=== PATIENT | female | born 1990 | race Caucasian/White ===

== ENCOUNTER 2016-11-22 05:28 | Inpatient (IN) | payer BC ==
--- NOTE | 2016-11-21 17:17 | PCM.PREANE ---
Preanesthetic Assessment - PMH PMH: current- repeat section - ANESTHESIA/TRANSFUSION/FAMILY HX Anesthesia/Transfusion History: No Prior Transfusion(s), Prior Anesthesia Type of Anesthesia Reaction: Denies: Allergy, Anesthesia Awareness, Excessive Somnolence, Excessive Nausea/Vomiting, Excessive Itching, Excessive Shivering, Malignant Hyperthermia, Malignant Hyperthermia, Family History, Pseudocholinesterase Deficiency, Pseudocholinesterase Deficiency, Family History of, Urinary Retention, Unknown, Other (see below) Family History of Anesthesia Reaction: No - REVIEW OF SYSTEMS Constitutional: Reports: no symptoms 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 Respiratory: Reports: no symptoms Cardiovascular: Reports: no symptoms GI: Reports: no symptoms Other: Reports: none - PHYSICAL ASSESSMENT HR: 92 O2 Sat by Pulse Oximetry: 99 RR: 16 BP: 106/73 Temp: 36.2 C Height: 5 ft 7 in Weight: 90.718 kg NPO Status Date: 11/21/16 NPO Status Time: 23:00 ASA Class: 2 Mental Status: alert & oriented x3 Airway Class: Mallampati = 1 Dentition: Reports: normal dentition Thyro-Mental Finger Breadths: 3 Mouth Opening Finger Breadths: 3 ROM/Head Extension: full Respiratory Status: lungs clear to auscultation bilaterally Cardiovascular Status: regular rate & rhythm, normal S1, S2, no murmur, blood pressure WNL - LAB Values: Laboratory Last Values WBC 12.48 K/uL (4.0-11.0) H 11/21/16 13:36 RBC 4.12 M/uL (4.30-5.90) L 11/21/16 13:36 Hgb 12.2 g/dL (12.0-16.0) 11/21/16 13:36 Hct 35.4 % (36.0-46.0) L 11/21/16 13:36 MCV 85.9 fL (80.0-98.0) 11/21/16 13:36 MCH 29.6 pg (27.0-32.0) 11/21/16 13:36 MCHC 34.5 g/dL (31.0-37.0) 11/21/16 13:36 RDW Std Deviation 47.4 fl (28.0-62.0) 11/21/16 13:36 RDW Coeff of [place] 15 % (11.0-15.0) 11/21/16 13:36 Plt Count 151 K/uL (150-400) 11/21/16 13:36 MPV 9.90 fL (7.40-12.00) 11/21/16 13:36 Nucleated RBC % 0.0 /100WBC 11/21/16 13:36 Nucleated RBCs # 0 K/uL 11/21/16 13:36 Blood Type A NEGATIVE 11/21/16 13:36 Antibody Screen NEGATIVE 11/21/16 13:36 - ALLERGIES Allergies/Adverse Reactions: Allergies Allergy/AdvReac Type Severity Reaction Status Date / Time No Known Allergies Allergy Verified 03/09/14 14:16 - BLOOD Blood Available: Yes Product(s) Available: PRBC - ANESTHESIA PLAN Medication Ordered: Antacids Anesthesia Type Planned: spinal - ACKNOWLEDGEMENTS Pt an appropriate candidate for the planned anesthesia: Yes Alternatives and risks of anesthesia discussed w pt/guardian: Yes Pt/Guardian understands and agree with anesthesia plan: Yes PreAnesthesia Questionnaire HEENT History: Reports: Other (see below) Other HEENT History: wears glasses/contacts Cardiovascular History: Reports: None Respiratory History: Reports: Asthma Other Respiratory History: asthma in the past Gastrointestinal History: Reports: None Other Gastrointestinal History: occasional heartburn Genitourinary History: Reports: None 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 OB/BYN History: 18 weeks Musculoskeletal History: Reports: Arthritis Neurological History: Reports: None Psychiatric History: Reports: None Endocrine/Metabolic History: Reports: None Hematologic History: Reports: None Immunologic History: Reports: None Oncologic (Cancer) History: Reports: None Dermatologic History: Reports: None - Past Surgical History Head Surgeries/Procedures: Reports: None GI Surgical History: Reports: Cholecystectomy (06/08 was 18 wks ) Female Surgical History: Reports: section - SUBSTANCE USE Smoking Status *Q: Never Smoker Tobacco Use Within Last Twelve Months: No Second Hand Smoke Exposure: No Days Per Week of Alcohol Use: 0 Recreational Drug Use History: No - HOME MEDS Home Medications: Home Meds PNV95/Ferrous Fumarate/FA [ Multivitamins] 1 each PO DAILY 01/01/15 [ History] - CURRENT (IN HOUSE) MEDS Current Meds: Current Medications Citric Acid/Sodium Citrate (Bicitra Solution) 30 ml PO .ONCE [facility] Lactated Ringer's (Ringers, Lactated) 1,000 mls @ 500 mls/hr IV .BOLUS [facility] Sodium Chloride (Saline Flush) 10 ml FLUSH ASDIRECTED PRN PRN Reason: Keep Vein Open Sodium Chloride (Saline Flush) 2.5 ml FLUSH ASDIRECTED PRN PRN Reason: Keep Vein Open Discontinued Medications Cefazolin Sodium/Dextrose 2 gm (/ Premix) 50 mls @ 100 mls/hr IV ONETIME ONE Stop: 11/21/16 13:53
[~2016-11-22 05:28] MED LIST: Citric Acid/Sodium Citrate Solution 30 ML Cup PO SCH; Sodium Chloride 0.9% 10 ML Syringe FLUSH PRN; Sodium Chloride 0.9% 2.5 ML Syringe FLUSH PRN; ceFAZolin 2 GM in Premix Bag 1 BAG IV ONE
[2016-11-22] MEDS: Lactated Ringers 1,000 ML IV SCH ×2 (07:04→08:01)
[2016-11-22] MEDS ORDERED: Octyl 2-Cyanoacrylate 1 Tube ONE (07:28)
[2016-11-22] MEDS ORDERED: ceFAZolin 1 GM Vial ONE (07:32)
[2016-11-22] MEDS ORDERED: Sodium Chloride 0.9% 20 ML ONE (07:32)
[2016-11-22] MEDS ORDERED: Lidocaine 2% 5 ML SDV ONE (07:33)
[2016-11-22] MEDS ORDERED: Ondansetron 4 MG/2 ML SDV ONE (07:33)
[2016-11-22] MEDS ORDERED: Oxytocin 10 Units/1 ML SDV ONE (07:33)
[2016-11-22] MEDS ORDERED: Water For Injection, Sterile 20 ML ONE (07:33)
[2016-11-22] MEDS ORDERED: ePHEDrine 50 MG/ML SDV ONE (07:33)
[2016-11-22] MEDS ORDERED: Morphine PF 10 MG/10 ML SDV ONE (07:38)
--- NOTE | 2016-11-22 08:02 | PCM.LDHP ---
L&D History of Present Illness - General Date of Service: 11/22/16 Admit Problem/Dx: Patient Status Order with Admit Dx/Problem 11/21/16 13:24 Patient Status [ADT] Routine Patient Status: Admit to Inpatient Admission Diagnosis/Problem: - planned Reason for Admit: Surgery Nurse Unit Type: Medical-Surgical Admitting Physician: Fabiano Vee Attending Physician: Fabiano Vee Admission Diagnosis/Problem Admission Diagnosis/Problem - planned Source of Information: Patient History Limitations: Reports: No limitations - History of Present Illness Improves with: Reports: None Worsens with: Reports: None Associated Symptoms: Reports: N - Related Data Allergies/Adverse Reactions: Allergies Allergy/AdvReac Type Severity Reaction Status Date / Time No Known Allergies Allergy Verified 03/09/14 14:16 Home Medications: Home Meds PNV95/Ferrous Fumarate/FA [ Multivitamins] 1 each PO DAILY 01/01/15 [ History] Past Medical History HEENT History: Reports: Other (see below) Other HEENT History: wears glasses/contacts Cardiovascular History: Reports: None Respiratory History: Reports: Asthma Other Respiratory History: asthma in the past Gastrointestinal History: Reports: None Other Gastrointestinal History: occasional heartburn Genitourinary History: Reports: None 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 OB/BYN History: 18 weeks Musculoskeletal History: Reports: Arthritis Neurological History: Reports: None Psychiatric History: Reports: None Endocrine/Metabolic History: Reports: None Hematologic History: Reports: None Immunologic History: Reports: None Oncologic (Cancer) History: Reports: None Dermatologic History: Reports: None - Past Surgical History Head Surgeries/Procedures: Reports: None GI Surgical History: Reports: Cholecystectomy (06/08 was 18 wks ) Female Surgical History: Reports: section Social & Family History - Tobacco Use Smoking Status *Q: Never Smoker Second Hand Smoke Exposure: No - Alcohol Use Days Per Week of Alcohol Use: 0 - Recreational Drug Use Recreational Drug Use: No H&P Review of Systems - Review of Systems: Review Of Systems: See Below General: Reports: no symptoms HEENT: Reports: no symptoms Pulmonary: Reports: no symptoms Cardiovascular: Reports: no symptoms Gastrointestinal: Reports: No symptoms Genitourinary: Reports: no symptoms Musculoskeletal: Reports: no symptoms Skin: Reports: no symptoms Psychiatric: Reports: no symptoms Neurological: Reports: no symptoms Hematologic/Lymphatic: Reports: no symptoms Immunologic: Reports: no symptoms L&D Exam - Exam Exam: See Below - Vital Signs Vital Signs: Last Vital Signs Temp 36.2 C 11/22/16 07:25 Pulse 92 11/22/16 07:25 Resp 16 11/22/16 07:25 BP 106/73 11/22/16 07:25 Pulse Ox 99 11/22/16 07:25 Weight: 90.718 kg - OB Specific Fundal Height in cm: 39 Contraction Intensity: Mild movement: active heart tones: present - Patient Data Lab Results last 24 hrs: Laboratory Results - last 24 hr 11/21/16 11/21/16 Range/Units 13:36 13:36 WBC 12.48 H (4.0-11.0) K/uL RBC 4.12 L (4.30-5.90) M/uL Hgb 12.2 (12.0-16.0) g/dL Hct 35.4 L (36.0-46.0) % MCV 85.9 (80.0-98.0) fL MCH 29.6 (27.0-32.0) pg MCHC 34.5 (31.0-37.0) g/dL RDW Std Deviation 47.4 (28.0-62.0) fl RDW Coeff of [place] 15 (11.0-15.0) % Plt Count 151 (150-400) K/uL MPV 9.90 (7.40-12.00) fL Nucleated RBC % 0.0 /100WBC Nucleated RBCs # 0 K/uL Blood Type A NEGATIVE Antibody Screen NEGATIVE Result Diagrams: 11/21/16 13:36 Problem List Initiated/Reviewed/Updated: Yes Orders Last 24hrs: Active Orders 24 hr Category Date Time Status Patient Status [ADT] Routine ADT 11/21/16 13:24 Active Non Stress Test [RC] PER UNIT ROUTINE Care 11/21/16 13:24 Active Procedure Site Prep Instruct [RC] ASDIRECTED Care 11/21/16 13:24 Active Up ad Malini [RC] ASDIRECTED Care 11/21/16 13:24 Active Vital Signs [RC] PER UNIT ROUTINE Care 11/21/16 13:24 Active Citric Acid/Sodium Citrate [Bicitra Solution] Med 11/21/16 13:30 Active 30 ml PO .ONCE Lactated Ringers [Ringers, Lactated] 1,000 ml Med 11/21/16 13:30 Active IV .BOLUS Sodium Chloride 0.9% [Saline Flush] Med 11/21/16 13:24 Active 10 ml FLUSH ASDIRECTED PRN Sodium Chloride 0.9% [Saline Flush] Med 11/21/16 13:24 Active 2.5 ml FLUSH ASDIRECTED PRN Peripheral IV Insertion Adult [OM.PC] Routine Oth 11/21/16 13:24 Ordered Resuscitation Status Routine Resus Stat 11/21/16 13:24 Ordered Medication Orders Citric Acid/Sodium Citrate (Bicitra Solution) 30 ml PO .ONCE [facility] Last Admin: 11/22/16 07:41 Dose: 30 ml Lactated Ringer's (Ringers, Lactated) 1,000 mls @ 500 mls/hr IV .BOLUS [facility] Last Admin: 11/22/16 07:04 Dose: 500 mls/hr Sodium Chloride (Saline Flush) 10 ml FLUSH ASDIRECTED PRN PRN Reason: Keep Vein Open Sodium Chloride (Saline Flush) 2.5 ml FLUSH ASDIRECTED PRN PRN Reason: Keep Vein Open
[2016-11-22] MEDS ORDERED: Phenylephrine/Normal Saline 100 MCG/ML 10 ML Syringe ONE (08:21)
[2016-11-22] MEDS ORDERED: Bisacodyl 10 MG Supp RECTAL PRN (08:52)
[2016-11-22] MEDS ORDERED: diphenhydrAMINE 50 MG/ML SDV IVPUSH PRN ×2 (08:52→09:12)
[2016-11-22] MEDS ORDERED: Ondansetron 4 MG/2 ML SDV IV PRN (08:52)
[2016-11-22] MEDS ORDERED: Lanolin 100% Cream 7 GM Tube TOP PRN (08:52)
[2016-11-22] MEDS ORDERED: Acetaminophen/oxyCODONE 325-5 MG Tab PO PRN (08:52)
--- NOTE | 2016-11-22 08:56 | PCM.OPNOTE ---
- General Post-Op/Procedure Note Date of Surgery/Procedure: 11/22/16 Pre Op Diagnosis: Term / Elective repeat c/ Section Post-Op Diagnosis: Same Secondary Surgeon: Fabiano Vee EBL in mLs: 800 Complications: None Condition: Good
[2016-11-22] MEDS ORDERED: Lactated Ringers 1,000 ML IV SCH ×3 (09:00→16:00)
[2016-11-22] MEDS ORDERED: Nalbuphine 10 MG/1 ML Vial IVPUSH PRN (09:12)
[2016-11-22] MEDS ORDERED: Naloxone 0.4 MG/ML Syringe IVPUSH PRN (09:12)
[2016-11-22] MEDS: Ketorolac 30 MG/ML SDV IVPUSH SCH ×3 (09:32→20:41)
--- NOTE | 2016-11-22 09:35 | PCM.POSTAN ---
POST ANESTHESIA ASSESSMENT - MENTAL STATUS Mental Status: alert - RESPIRATORY Respiratory Status: respiratory rate WNL, airway patent, O2 saturation stable - CARDIOVASCULAR CV Status: pulse rate WNL, blood pressure stable - GASTROINTESTINAL GI Status: no symptoms - PAIN Pain Score: 0 - POST OP HYDRATION Hydration Status: adequate & stable
[2016-11-22] MEDS: Docusate Sodium 100 MG Cap PO SCH ×2 (13:18→20:41)
--- NOTE | 2016-11-22 13:30 | OR ---
SURGEON: Fabiano Vee MD DATE OF PROCEDURE: PREOPERATIVE DIAGNOSIS: Term , previous section admitted for elective repeat section. POSTOPERATIVE DIAGNOSIS: Term , previous section admitted for elective repeat section. OPERATION PERFORMED: Low transverse section through Pfannenstiel skin incision. CASHIER SELF SERVICE GASOLINE: STEPHANIE Osorio. ANESTHESIA: Spinal by Danny Jeffery and Dr. Sharif. ESTIMATED BLOOD LOSS: 800 mL. COMPLICATIONS: None. FINDINGS: Male fetus. scores were reported to be 8 and 9. The weight is not available at this time. Normal uterus, tubes, and ovaries. INDICATION FOR SURGERY: This patient is and term and she is followed in our clinic primarily by me. She is admitted for elective repeat section. PROCEDURE IN DETAIL: The patient was brought to the OR, properly identified. After adequate level of spinal anesthesia, the patient was prepped and draped in sterile fashion as usual. Low transverse Pfannenstiel skin incision was done. Jose fascia and rectus fascia were opened in direction of the incision. The 2 recti muscles and peritoneal cavity was entered. Low transverse uterine incision was done, extended manually with the hand. Fetus was in a vertex position and delivered without any problem. Handed to the resuscitating team. Fetus cried immediately and later on the score reported 8 and 9. The weight is not available. The placenta delivered spontaneous, complete, and intact and repair of the lower uterine segment was done with 2-0 Vicryl continuous interlocking for 2 layers. The peritoneal cavity was evacuated completely from all blood and blood clot and closed with 3-0 Vicryl continuous. Then, the rectus fascia was closed with #1 PDS double strand continuous. The Jose's fascia was closed with 3-0 Vicryl continuous and the skin closed with skin clips and Insorb. Instrument and sponge count were correct. The patient tolerated the procedure well. Went to recovery room in stable general condition. CHRISTOPHER / ROBERTA /[id number]
[2016-11-22] MEDS ORDERED: fentaNYL 100 MCG/2 ML SDV IVPUSH PRN (20:03)
[2016-11-23] MEDS: Ketorolac 30 MG/ML SDV IVPUSH SCH ×2 (03:09→08:56)
--- NOTE | 2016-11-23 08:56 | PCM.PNPP ---
- General Info Date of Service: 11/23/16 Functional Status: Reports: pain controlled - Review of Systems General: Reports: no symptoms HEENT: Reports: no symptoms Pulmonary: Reports: no symptoms Cardiovascular: Reports: no symptoms Gastrointestinal: Reports: No symptoms Genitourinary: Reports: no symptoms Musculoskeletal: Reports: no symptoms Skin: Reports: no symptoms Neurological: Reports: no symptoms Psychiatric: Reports: no symptoms - General Info Date of Service: 11/23/16 - Patient Data Vital Signs - most recent: Last Vital Signs Temp 36.8 C 11/23/16 08:00 Pulse 107 H 11/23/16 08:00 Resp 20 11/23/16 08:00 BP 107/56 L 11/23/16 08:00 Pulse Ox 95 11/23/16 08:00 Weight - most recent: 90.718 kg I&O - last 24 hours: Intake & Output 11/22/16 11/23/16 11/23/16 22:59 06:59 14:59 Intake Total 2 900 Output Total 400 650 Balance -398 250 Lab Results - last 24 hrs: Laboratory Results - last 24 hr 11/22/16 11/23/16 Range/Units 09:56 04:33 Hgb 9.8 L (12.0-16.0) g/dL Hct 29.5 L (36.0-46.0) % Screen NEGATIVE RhIG Candidate? YES Rhogam Indicated YES, BABY RH POS H Med Orders - Current: Current Medications Bisacodyl (Dulcolax) 10 mg RECTAL .ONCE PRN PRN Reason: Constipation Citric Acid/Sodium Citrate (Bicitra Solution) 30 ml PO .ONCE [facility] Last Admin: 11/22/16 07:41 Dose: 30 ml Diphenhydramine HCl (Benadryl) 25 mg IVPUSH Q6H PRN PRN Reason: Itching or Nausea Diphenhydramine HCl (Benadryl) 25 mg IVPUSH Q4H PRN PRN Reason: Itching Stop: 11/23/16 09:12 Docusate Sodium (Colace) 100 mg PO BID [facility] Last Admin: 11/22/16 20:41 Dose: 100 mg Emollient Ointment (Lansinoh Hpa) 0 gm TOP ASDIRECTED PRN PRN Reason: Sore Nipples Lactated Ringer's (Ringers, Lactated) 1,000 mls @ 500 mls/hr IV .BOLUS [facility] Last Admin: 11/22/16 08:01 Dose: 500 mls/hr Lactated Ringer's (Ringers, Lactated) 1,000 mls @ 125 mls/hr IV ASDIRECTED [facility] Ibuprofen (Motrin) 800 mg PO Q8H PRN PRN Reason: mild pain or fever Ketorolac Tromethamine (Toradol) 30 mg IVPUSH Q6H [facility] Stop: 11/23/16 09:01 Last Admin: 11/23/16 03:09 Dose: 30 mg Nalbuphine HCl (Nubain) 5 mg IVPUSH Q3H PRN PRN Reason: Pruritis Stop: 11/23/16 09:12 Naloxone HCl (Narcan) 0.1 mg IVPUSH ONETIME PRN PRN Reason: Respiratory Depression Stop: 11/23/16 09:12 Ondansetron HCl (Zofran) 4 mg IV Q4H PRN PRN Reason: Nausea/Vomiting Oxycodone/Acetaminophen (Percocet 325-5 Mg) 1 tab PO Q4H PRN PRN Reason: Pain (moderate 4-6) Oxycodone/Acetaminophen (Percocet 325-5 Mg) 2 tab PO Q4H PRN PRN Reason: Pain (moderate 4-6) Sodium Chloride (Saline Flush) 10 ml FLUSH ASDIRECTED PRN PRN Reason: Keep Vein Open Sodium Chloride (Saline Flush) 2.5 ml FLUSH ASDIRECTED PRN PRN Reason: Keep Vein Open Discontinued Medications Cefazolin Sodium (Ancef) Confirm Administered Dose 2 gm .ROUTE .STK-MED ONE Stop: 11/22/16 07:33 Ephedrine Sulfate (Ephedrine Sulfate) Confirm Administered Dose 50 mg .ROUTE .STK-MED ONE Stop: 11/22/16 07:34 Fentanyl (Sublimaze) 50 mcg IVPUSH Q45M PRN PRN Reason: Pain (severe 7-10) Stop: 11/23/16 08:00 Glycopyrrolate (Robinul) Confirm Administered Dose 1 mg .ROUTE .STK-MED ONE Stop: 11/22/16 08:21 Cefazolin Sodium/Dextrose 2 gm (/ Premix) 50 mls @ 100 mls/hr IV ONETIME ONE Stop: 11/21/16 13:53 Sodium Chloride (Normal Saline) Confirm Administered Dose 20 mls @ as directed .ROUTE .STK-MED ONE Stop: 11/22/16 07:33 Sterile Water (Sterile Water For Injection) Confirm Administered Dose 20 mls @ as directed .ROUTE .STK-MED ONE Stop: 11/22/16 07:34 Lactated Ringer's (Ringers, Lactated) 1,000 mls @ 125 mls/hr IV ASDIRECTED [facility] Last Admin: 11/22/16 11:01 Dose: 125 mls/hr Lidocaine (Xylocaine-Mpf 2%) Confirm Administered Dose 5 ml .ROUTE .STK-MED ONE Stop: 11/22/16 07:34 Morphine Sulfate (Duramorph Pf) Confirm Administered Dose 10 mg .ROUTE .STK-MED ONE Stop: 11/22/16 07:39 Octyl Cyanoacrylate (Dermabond Advance) Confirm Administered Dose 1 applic .ROUTE .STK-MED ONE Stop: 11/22/16 07:29 Ondansetron HCl (Zofran) Confirm Administered Dose 4 mg .ROUTE .STK-MED ONE Stop: 11/22/16 07:34 Oxytocin (Pitocin) Confirm Administered Dose 20 unit .ROUTE .STK-MED ONE Stop: 11/22/16 07:34 Phenylephrine HCl (Phenylephrine In Ns 100 Mcg/Ml) Confirm Administered Dose 1 mg .ROUTE .STK-MED ONE Stop: 11/22/16 08:22 - Interaction Disposition, : [place] in Room with Family Infant Interaction: Holding Infant Infant Feeding: Attempted ; Nursed Fair/Poor Support Person: - Recovery Exam Fundal Tone: Firm Fundal Level: 1 Fingerbreadths Below Umbilicus Fundal Placement: Midline Lochia Amount: Scant Lochia Color: Rubra/Red Perineum Description: Intact, Minimal Bruising/Swelling Episiotomy/Laceration: None Bladder Status: Indwelling Catheter in Place Urinary Elimination: Indwelling Catheter - Exam General: alert, oriented HEENT: Pupils equal Neck: supple Lungs: Clear to auscultation, Normal respiratory effort Cardiovascular: regular rate, regular rhythm Abdomen: bowel sounds present, soft, no tenderness, no distension Extremities: no edema Skin: warm, dry, intact Wound/Incisions: healing well Neurological: no new focal deficit Psy/Mental Status: alert, normal affect, normal mood - Problem List Review Problem List Initiated/Reviewed/Updated: Yes - My Orders Last 24 Hours: My Active Orders 11/22/16 08:52 Patient Status [ADT] Routine Ambulate [RC] PER UNIT ROUTINE Communication Order [RC] PER UNIT ROUTINE Communication Order [RC] PER UNIT ROUTINE Communication Order [RC] Per Unit Routine May Shower [RC] ASDIRECTED RT Incentive Spirometry [RC] Q2HWA Vital Signs [RC] PER UNIT ROUTINE Acetaminophen/oxyCODONE [Percocet 325-5 MG] 1 tab PO Q4H PRN Acetaminophen/oxyCODONE [Percocet 325-5 MG] 2 tab PO Q4H PRN Bisacodyl [Dulcolax] 10 mg RECTAL .ONCE PRN Lanolin [Lansinoh HPA] See Dose Instructions TOP ASDIRECTED PRN Ondansetron [Zofran] 4 mg IV Q4H PRN diphenhydrAMINE [Benadryl] 25 mg IVPUSH Q6H PRN Assess Lochia [WOMSER] Per Unit Routine Assess Uterine Involution [WOMSER] Per Unit Routine Breast Pump [WOMSER] Per Unit Routine Peripheral IV Discontinue [OM.PC] Routine Sequential Compression Device [OM.PC] Per Unit Routine 11/22/16 08:53 Antiembolic Devices [RC] PER UNIT ROUTINE 11/22/16 09:00 Docusate Sodium [Colace] 100 mg PO BID Ketorolac [Toradol] 30 mg IVPUSH Q6H 11/22/16 16:00 Lactated Ringers [Ringers, Lactated] 1,000 ml IV ASDIRECTED 11/22/16 Dinner Regular Diet [DIET] 11/23/16 15:00 Ibuprofen [Motrin] 800 mg PO Q8H PRN - Assessment Assessment:: Status post section postoperative day #1 the patient is doing well on regular diet voiding incision is clean and dry minimum vaginal bleeding - Plan Plan:: For care we will send the patient home in a.m.
[2016-11-23] MEDS: Docusate Sodium 100 MG Cap PO SCH ×2 (08:57→21:29)
[2016-11-23] MEDS: Ibuprofen 800 MG Tab PO PRN (15:54)
[2016-11-23] MEDS: Acetaminophen/oxyCODONE 325-5 MG Tab PO PRN (18:43)
--- NOTE | 2016-11-23 22:31 | PCM48HPAN ---
Post Anesthesia Note - EVALUATION WITHIN 48HRS OF ANESTHETIC Vital Signs in Normal Range: Yes Patient Participated in Evaluation: Yes Respiratory Function Stable: Yes Airway Patent: Yes Cardiovascular Function Stable: Yes Hydration Status Stable: Yes Pain Control Satisfactory: Yes Nausea and Vomiting Control Satisfactory: Yes Mental Status Recovered: Yes - COMMENTS/OBSERVATIONS Free Text/Narrative:: Full return of sensation and motor movement to lower extremities. Denies problems with anesthetic.
[2016-11-24] MEDS: Acetaminophen/oxyCODONE 325-5 MG Tab PO PRN (04:18)
[2016-11-24 08:20] VITALS: BP 113/67
[2016-11-24] MEDS: Docusate Sodium 100 MG Cap PO SCH (09:26)
[2016-11-24] MEDS: Ibuprofen 800 MG Tab PO PRN (09:26)
--- NOTE | 2016-11-24 10:25 | PCM.PNPP ---
- General Info Date of Service: 11/24/16 Functional Status: Reports: pain controlled - Review of Systems General: Reports: no symptoms HEENT: Reports: no symptoms Pulmonary: Reports: no symptoms Cardiovascular: Reports: no symptoms Gastrointestinal: Reports: No symptoms Genitourinary: Reports: no symptoms Musculoskeletal: Reports: no symptoms Skin: Reports: no symptoms Neurological: Reports: no symptoms Psychiatric: Reports: no symptoms - General Info Date of Service: 11/24/16 - Patient Data Vital Signs - most recent: Last Vital Signs Temp 36.7 C 11/24/16 08:19 Pulse 100 11/24/16 08:19 Resp 17 11/24/16 08:19 BP 113/67 11/24/16 08:19 Pulse Ox 97 11/24/16 08:19 Weight - most recent: 90.718 kg Med Orders - Current: Current Medications Bisacodyl (Dulcolax) 10 mg RECTAL .ONCE PRN PRN Reason: Constipation Citric Acid/Sodium Citrate (Bicitra Solution) 30 ml PO .ONCE PARVEZ Last Admin: 11/22/16 07:41 Dose: 30 ml Diphenhydramine HCl (Benadryl) 25 mg IVPUSH Q6H PRN PRN Reason: Itching or Nausea Docusate Sodium (Colace) 100 mg PO BID PARVEZ Last Admin: 11/24/16 09:26 Dose: 100 mg Emollient Ointment (Lansinoh Hpa) 0 gm TOP ASDIRECTED PRN PRN Reason: Sore Nipples Last Admin: 11/23/16 15:53 Dose: 1 tube Lactated Ringer's (Ringers, Lactated) 1,000 mls @ 500 mls/hr IV .BOLUS PARVEZ Last Admin: 11/22/16 08:01 Dose: 500 mls/hr Lactated Ringer's (Ringers, Lactated) 1,000 mls @ 125 mls/hr IV ASDIRECTED PARVEZ Ibuprofen (Motrin) 800 mg PO Q8H PRN PRN Reason: mild pain or fever Last Admin: 11/24/16 09:26 Dose: 800 mg Ondansetron HCl (Zofran) 4 mg IV Q4H PRN PRN Reason: Nausea/Vomiting Oxycodone/Acetaminophen (Percocet 325-5 Mg) 1 tab PO Q4H PRN PRN Reason: Pain (moderate 4-6) Last Admin: 11/24/16 04:18 Dose: 1 tab Oxycodone/Acetaminophen (Percocet 325-5 Mg) 2 tab PO Q4H PRN PRN Reason: Pain (moderate 4-6) Sodium Chloride (Saline Flush) 10 ml FLUSH ASDIRECTED PRN PRN Reason: Keep Vein Open Sodium Chloride (Saline Flush) 2.5 ml FLUSH ASDIRECTED PRN PRN Reason: Keep Vein Open Discontinued Medications Cefazolin Sodium (Ancef) Confirm Administered Dose 2 gm .ROUTE .STK-MED ONE Stop: 11/22/16 07:33 Diphenhydramine HCl (Benadryl) 25 mg IVPUSH Q4H PRN PRN Reason: Itching Stop: 11/23/16 09:12 Ephedrine Sulfate (Ephedrine Sulfate) Confirm Administered Dose 50 mg .ROUTE .STK-MED ONE Stop: 11/22/16 07:34 Fentanyl (Sublimaze) 50 mcg IVPUSH Q45M PRN PRN Reason: Pain (severe 7-10) Stop: 11/23/16 08:00 Glycopyrrolate (Robinul) Confirm Administered Dose 1 mg .ROUTE .STK-MED ONE Stop: 11/22/16 08:21 Cefazolin Sodium/Dextrose 2 gm (/ Premix) 50 mls @ 100 mls/hr IV ONETIME ONE Stop: 11/21/16 13:53 Sodium Chloride (Normal Saline) Confirm Administered Dose 20 mls @ as directed .ROUTE .STK-MED ONE Stop: 11/22/16 07:33 Sterile Water (Sterile Water For Injection) Confirm Administered Dose 20 mls @ as directed .ROUTE .STK-MED ONE Stop: 11/22/16 07:34 Lactated Ringer's (Ringers, Lactated) 1,000 mls @ 125 mls/hr IV ASDIRECTED [facility] Last Admin: 11/22/16 11:01 Dose: 125 mls/hr Ketorolac Tromethamine (Toradol) 30 mg IVPUSH Q6H [facility] Stop: 11/23/16 09:01 Last Admin: 11/23/16 08:56 Dose: 30 mg Lidocaine (Xylocaine-Mpf 2%) Confirm Administered Dose 5 ml .ROUTE .STK-MED ONE Stop: 11/22/16 07:34 Morphine Sulfate (Duramorph Pf) Confirm Administered Dose 10 mg .ROUTE .STK-MED ONE Stop: 11/22/16 07:39 Nalbuphine HCl (Nubain) 5 mg IVPUSH Q3H PRN PRN Reason: Pruritis Stop: 11/23/16 09:12 Naloxone HCl (Narcan) 0.1 mg IVPUSH ONETIME PRN PRN Reason: Respiratory Depression Stop: 11/23/16 09:12 Octyl Cyanoacrylate (Dermabond Advance) Confirm Administered Dose 1 applic .ROUTE .STK-MED ONE Stop: 11/22/16 07:29 Ondansetron HCl (Zofran) Confirm Administered Dose 4 mg .ROUTE .STK-MED ONE Stop: 11/22/16 07:34 Oxytocin (Pitocin) Confirm Administered Dose 20 unit .ROUTE .STK-MED ONE Stop: 11/22/16 07:34 Phenylephrine HCl (Phenylephrine In Ns 100 Mcg/Ml) Confirm Administered Dose 1 mg .ROUTE .STK-MED ONE Stop: 11/22/16 08:22 - Interaction Infant Disposition, : [place] in Room with Family Interaction: Holding Feeding: Attempted ; Nursed Fair/Poor Support Person: - Recovery Exam Fundal Tone: Firm Fundal Level: 1 Fingerbreadths Below Umbilicus Fundal Placement: Midline Lochia Amount: Scant Lochia Color: Rubra/Red Perineum Description: Intact, Minimal Bruising/Swelling Episiotomy/Laceration: None Bladder Status: Voiding Urinary Elimination: Voided - Exam General: alert, oriented HEENT: Pupils equal Neck: supple Lungs: Clear to auscultation, Normal respiratory effort Cardiovascular: regular rate, regular rhythm Abdomen: bowel sounds present, soft, no tenderness, no distension Extremities: no edema Skin: warm, dry, intact Wound/Incisions: healing well Neurological: no new focal deficit Psy/Mental Status: alert, normal affect, normal mood - Problem List Review Problem List Initiated/Reviewed/Updated: Yes - My Orders Last 24 Hours: My Active Orders 11/23/16 15:00 Ibuprofen [Motrin] 800 mg PO Q8H PRN - Assessment Assessment:: Status post section postoperative day #1 the patient is doing well on regular diet voiding incision is clean and dry minimum vaginal bleeding - Plan Plan:: For care we will send the patient home in a.m.
== END 2016-11-24 12:30 | disposition home or self-care (01) | DRG 540 ==
LOC: MW.OB 05:28
PROVIDERS: ADMIT Obstetrics & Gynecology; ATTEND Obstetrics & Gynecology
PROC: 10D00Z1 Extraction of Products of Conception, Low, Open Approach (ICD-10-PCS; principal; 2016-11-22)
DX: O34.211 Maternal care for low transverse scar from previous cesarean delivery (principal); N85.8 Other specified noninflammatory disorders of uterus; Z3A.40 40 weeks gestation of pregnancy; Z37.0 Single live birth
CPT/HCPCS: 01961; 36415; 85014; 85018; 85027; 85460; 86850; 86900; 86901; A9270-GY; J0690; J1885; J2270; J2405; J2590; J2790; J7120

== ENCOUNTER 2017-07-20 09:57 | Emergency (ER) | payer BC, OTHER ==
[2017-07-20 10:13] VITALS: BP 120/68
[2017-07-20] MEDS ORDERED: Benzocaine 20% Topical Spray UD MUCMEM ONE (10:18)
[2017-07-20] MEDS ORDERED: Lidocaine 2% Viscous Solution 15 ML Cup PO ONE (10:18)
--- NOTE | 2017-07-20 10:36 | EDM.PDOC ---
ED HPI GENERAL MEDICAL PROBLEM - General Chief Complaint: ENT Problem Stated Complaint: ORAL PAIN Time Seen by Provider: 07/20/17 10:10 Source of Information: Reports: Patient History Limitations: Reports: No Limitations - History of Present Illness INITIAL COMMENTS - FREE TEXT/NARRATIVE: History of present illness: [27-year-old female comes in complaining of dental pain on the right upper back wisdom tooth.] Review of systems: As per history of present illness and below otherwise all systems reviewed and negative. Past medical history: As per history of present illness and as reviewed below otherwise noncontributory. Surgical history: As per history of present illness and as reviewed below otherwise noncontributory. Social history: No reported history of drug or alcohol abuse. Family history: As per history of present illness and as reviewed below otherwise noncontributory. Physical exam: HEENT: Atraumatic, normocephalic, pupils reactive, negative for conjunctival pallor or scleral icterus, mucous membranes moist, throat clear, neck supple, nontender, trachea midline. Lungs: Clear to auscultation, breath sounds equal bilaterally, chest nontender. Heart: S1S2, regular, negative for clicks, rubs, or JVD. Abdomen: Soft, nondistended, nontender. Negative for masses or hepatosplenomegaly. Negative for costovertebral tenderness. Pelvis: Stable nontender. Genitourinary: Deferred. Rectal: Deferred. Extremities: Atraumatic, negative for cords or calf pain. Neurovascular unremarkable. Neuro: Awake, alert, oriented. Cranial nerves II through XII unremarkable. Cerebellum unremarkable. Motor and sensory unremarkable throughout. Exam nonfocal. Dental: Right upper back wisdom tooth with some amount of impaction as well as secondary infection Diagnostics: [] Therapeutics: [] Impression: [#1 dental pain #2 dental abscess] Plan: [Dental balls, antibiotics, small brief run of pain medicine dental] Definitive disposition and diagnosis as appropriate pending reevaluation and review of above. Right Upper Tooth/Teeth Pain Score (Numeric/FACES): 4 - Related Data Allergies Allergy/AdvReac Type Severity Reaction Status Date / Time No Known Allergies Allergy Verified 07/20/17 10:05 Home Meds: Home Meds PNV95/Ferrous Fumarate/FA [ Multivitamins] 1 each PO DAILY 01/01/15 [ History] Amoxicillin/Potassium Clav [Augmentin 875-125 Tablet] 1 each PO BID #20 tablet 07/20/17 [Rx] Past Medical History HEENT History: Reports: Impaired Vision Other HEENT History: wears glasses/contacts Cardiovascular History: Reports: None Respiratory History: Reports: Asthma Other Respiratory History: asthma in the past Gastrointestinal History: Reports: Other (See Below) Other Gastrointestinal History: occasional heartburn Genitourinary History: Reports: None CARDIOGRAPHER History: Reports: Other OB/BYN History: 18 weeks Musculoskeletal History: Reports: Arthritis Neurological History: Reports: None Psychiatric History: Reports: None Endocrine/Metabolic History: Reports: None Hematologic History: Reports: None Immunologic History: Reports: None Oncologic (Cancer) History: Reports: None Dermatologic History: Reports: None - Past Surgical History Head Surgeries/Procedures: Reports: None GI Surgical History: Reports: Cholecystectomy Female Surgical History: Reports: Section Social & Family History - Family History Family Medical History: Noncontributory - Tobacco Use Smoking Status *Q: Never Smoker Second Hand Smoke Exposure: No - Caffeine Use Caffeine Use: Reports: Coffee, Soda Caffeine Use Comment: 2 cups per day - Alcohol Use Days Per Week of Alcohol Use: 0 - Recreational Drug Use Recreational Drug Use: No ED ROS GENERAL - Review of Systems Review Of Systems: See Below (See history of present illness) ED EXAM, GENERAL - Physical Exam Exam: See Below (See history of present illness) Course - Vital Signs Last Recorded V/S: Last Vital Signs Temp 36.0 C 07/20/17 10:06 Pulse 76 07/20/17 10:06 Resp 16 07/20/17 10:06 BP 120/68 07/20/17 10:06 Pulse Ox 98 07/20/17 10:06 - Orders/Labs/Meds Meds: Medications Discontinued Medications Generic Name Dose Route Start Last Admin Trade Name Freq PRN Reason Stop Dose Admin Benzocaine 2 each 07/20/17 10:18 Hurricaine One 20% MUCMEM 07/20/17 10:19 ONETIME ONE Lidocaine HCl 15 ml 07/20/17 10:18 Xylocaine 2% Viscous PO 07/20/17 10:19 ONETIME ONE Departure - Departure Time of Disposition: 10:37 Disposition: Home, Self-Care 01 Condition: Good Clinical Impression: Dental abscess - Discharge Information Prescriptions: Amoxicillin/Potassium Clav [Augmentin 875-125 Tablet] 1 each PO BID #20 tablet Instructions: Dental Abscess, [id number] Referrals: PCP,Unknown [Primary Care Provider] - Forms: ED Department Discharge Additional Instructions: The following information is given to patients seen in the emergency department who are being discharged to home. This information is to outline your options for follow-up care. We provide all patients seen in our emergency department with a follow-up referral. The need for follow-up, as well as the timing and circumstances, are variable depending upon the specifics of your emergency department visit. If you don't have a primary care physician on staff, we will provide you with a referral. We always advise you to contact your personal physician following an emergency department visit to inform them of the circumstance of the visit and for follow-up with them and/or the need for any referrals to a consulting specialist. The emergency department will also refer you to a specialist when appropriate. This referral assures that you have the opportunity for follow-up care with a specialist. All of these measure are taken in an effort to provide you with optimal care, which includes your follow-up. Under all circumstances we always encourage you to contact your private physician who remains a resource for coordinating your care. When calling for follow-up care, please make the office aware that this follow-up is from your recent emergency room visit. If for any reason you are refused follow-up, please contact the [facility] Emergency Department at and asked to speak to the emergency department charge nurse. Take medication as directed Follow-up with dentist as discussed Return to ED as needed as discussed
== END 2017-07-20 10:50 | disposition home or self-care (01) ==
LOC: MW.ED 09:57
DX: K04.7 Periapical abscess without sinus (principal)
CPT/HCPCS: 99282; A9270; 99281

== ENCOUNTER 2019-03-12 07:45 | Inpatient (IN) | payer BC, MEDICAID ==
[~2019-03-12 07:45] MED LIST changes: +Citric Acid/Sodium Citrate Solution 30 ML Cup PO ONE; -Citric Acid/Sodium Citrate Solution 30 ML Cup PO SCH; +Oxytocin/0.9 % Sodium Chloride 30 UNIT/500 ML BAG IV SCH; +Sodium Chloride 0.9% 10 ML SDV IV PRN; -ceFAZolin 2 GM in Premix Bag 1 BAG IV ONE
--- NOTE | 2019-03-12 08:05 | PCM.LDHP ---
L&D History of Present Illness - General Date of Service: 03/12/19 Admit Problem/Dx: Patient Status Order with Admit Dx/Problem 03/11/19 09:54 Patient Status [ADT] Routine Admission Diagnosis/Problem Admission Diagnosis/Problem Source of Information: Patient History Limitations: Reports: No Limitations - History of Present Illness Improves with: Reports: None Worsens with: Reports: None Associated Symptoms: Reports: N - Related Data Allergies/Adverse Reactions: Allergies Allergy/AdvReac Type Severity Reaction Status Date / Time No Known Allergies Allergy Verified 03/10/19 07:21 Home Medications: Home Meds PNV95/Ferrous Fumarate/FA [ Multivitamins] 1 each PO DAILY 01/01/15 [ History] Loratadine [Claritin] 1 tab PO DAILY 03/10/19 [History] Past Medical History HEENT History: Reports: Allergic Rhinitis, Impaired Vision Other HEENT History: wears glasses/contacts Cardiovascular History: Reports: None Respiratory History: Reports: None Gastrointestinal History: Reports: Other (See Below) Other Gastrointestinal History: occasional heartburn with Genitourinary History: Reports: None [employer] History: Reports: Musculoskeletal History: Reports: None Neurological History: Reports: None Psychiatric History: Reports: None Endocrine/Metabolic History: Reports: None Hematologic History: Reports: None Immunologic History: Reports: None Oncologic (Cancer) History: Reports: None Dermatologic History: Reports: None - Past Surgical History Head Surgeries/Procedures: Reports: None HEENT Surgical History: Reports: None Cardiovascular Surgical History: Reports: None Respiratory Surgical History: Reports: None GI Surgical History: Reports: Cholecystectomy Female Surgical History: Reports: Section Endocrine Surgical History: Reports: None Neurological Surgical History: Reports: None Musculoskeletal Surgical History: Reports: None Oncologic Surgical History: Reports: None Dermatological Surgical History: Reports: None Social & Family History - Family History Family Medical History: Noncontributory - Tobacco Use Smoking Status *Q: Never Smoker - Caffeine Use Caffeine Use: Reports: Coffee, Soda Caffeine Use Comment: 2 cups per day - Recreational Drug Use Recreational Drug Use: No H&P Review of Systems - Review of Systems: Review Of Systems: See Below General: Reports: No Symptoms HEENT: Reports: No Symptoms Pulmonary: Reports: No Symptoms Cardiovascular: Reports: No Symptoms Gastrointestinal: Reports: No Symptoms Genitourinary: Reports: No Symptoms Musculoskeletal: Reports: No Symptoms Skin: Reports: No Symptoms Psychiatric: Reports: No Symptoms Neurological: Reports: No Symptoms Hematologic/Lymphatic: Reports: No Symptoms Immunologic: Reports: No Symptoms L&D Exam - Exam Exam: See Below - Vital Signs Weight: 95.708 kg - OB Specific Contraction Intensity: Mild - Scott Score Scott Score Cervix Position: Midposition Scott Score Consistency: Firm Scott Score Effacement: 31-50% Scott Score Dilation: Closed Scott Score Infant's Station: -3 Scott Score Total: 2 - Exam General: Alert, Oriented HEENT: PERRLA, Conjunctiva Clear, EACs Clear, EOMI, Hearing Intact, Mucosa Moist & [place], Nares Patent, Normal Nasal Septum, Posterior Pharynx Clear, TMs Clear Neck: Supple, Trachea Midline Lungs: Clear to Auscultation, Normal Respiratory Effort Cardiovascular: Regular Rate, Regular Rhythm GI/Abdominal Exam: Normal Bowel Sounds, Soft, Non-Tender, No Organomegaly, No Distention, No Abnormal Bruit, No Mass, Pelvis Stable Rectal Exam: Normal Exam, Normal Rectal Tone Genitourinary: Normal external exam, Normal bimanual exam, Normal speculum exam Back Exam: Normal Inspection, Full Range of Motion Extremities: Normal Inspection, Normal Range of Motion, Non-Tender, No Pedal Edema, Normal Capillary Refill Skin: Warm, Dry, Intact Neurological: Cranial Nerves Intact, Reflexes Equal Bilateral Psychiatric: Alert, Normal Affect, Normal Mood - Patient Data Lab Results Last 24 hrs: Laboratory Results - last 24 hr 03/11/19 03/11/19 Range/Units 11:05 11:05 WBC 11.27 H (4.0-11.0) K/uL RBC 4.07 L (4.30-5.90) M/uL Hgb 12.0 (12.0-16.0) g/dL Hct 35.0 L (36.0-46.0) % MCV 86.0 (80.0-98.0) fL MCH 29.5 (27.0-32.0) pg MCHC 34.3 (31.0-37.0) g/dL RDW Std Deviation 49.7 (28.0-62.0) fl RDW Coeff of [place] 16 H (11.0-15.0) % Plt Count 156 (150-400) K/uL MPV 9.70 (7.40-12.00) fL Nucleated RBC % 0.0 /100WBC Nucleated RBCs # 0 K/uL Blood Type A NEGATIVE Antibody Screen NEGATIVE Result Diagrams: 03/11/19 11:05 Problem List Initiated/Reviewed/Updated: Yes Orders Last 24hrs: Active Orders 24 hr Category Date Time Status Patient Status [ADT] Routine ADT 03/11/19 09:54 Active Non Stress Test [RC] PER UNIT ROUTINE Care 03/11/19 09:54 Active Procedure Site Prep Instruct [RC] ASDIRECTED Care 03/11/19 09:54 Active Up ad Malini [RC] ASDIRECTED Care 03/11/19 09:54 Active Vital Signs [RC] PER UNIT ROUTINE Care 03/11/19 09:54 Active Lactated Ringers [Ringers, Lactated] 1,000 ml Med 03/11/19 10:00 Active IV BOLUS Oxytocin/0.9 % Sodium Chloride [Oxytocin 30 Unit/500 ML Med 03/11/19 10:00 Active -NS] 30 unit in 500 ml IV TITRATE Sodium Chloride 0.9% [Normal Saline] Med 03/11/19 09:54 Active 10 ml IV ASDIRECTED PRN Sodium Chloride 0.9% [Saline Flush] Med 03/11/19 09:54 Active 10 ml FLUSH ASDIRECTED PRN Sodium Chloride 0.9% [Saline Flush] Med 03/11/19 09:54 Active 2.5 ml FLUSH ASDIRECTED PRN Peripheral IV Insertion Adult [OM.PC] Routine Oth 03/11/19 09:54 Ordered Schedule Procedure [COMM] Per Unit Routine Oth 03/11/19 09:54 Ordered Resuscitation Status Routine Resus Stat 03/11/19 09:54 Ordered Medication Orders Lactated Ringer's (Ringers, Lactated) 1,000 mls @ 500 mls/hr IV BOLUS PARVEZ Oxytocin/Sodium Chloride (Oxytocin 30 Unit/500 Ml-Ns) 30 unit in 500 mls @ 250 mls/hr IV TITRATE PARVZE Sodium Chloride (Saline Flush) 10 ml FLUSH ASDIRECTED PRN PRN Reason: Keep Vein Open Sodium Chloride (Saline Flush) 2.5 ml FLUSH ASDIRECTED PRN PRN Reason: Keep Vein Open Sodium Chloride (Normal Saline) 10 ml IV ASDIRECTED PRN PRN Reason: IV Use Assessment/Plan Comment:: IUP 39+1 admitted for elective repeat C/section.
[2019-03-12] MEDS ORDERED: ceFAZolin 2 GM in Premix Bag 1 BAG IV ONE (08:30)
[2019-03-12] MEDS: Lactated Ringers 1,000 ML IV SCH ×2 (08:30→09:44)
[2019-03-12] MEDS ORDERED: diphenhydrAMINE 50 MG/ML SDV IVPUSH PRN ×2 (08:45→10:45)
[2019-03-12] MEDS ORDERED: Ondansetron 4 MG/2 ML SDV IVPUSH PRN (08:45)
[2019-03-12] MEDS ORDERED: Bisacodyl 10 MG Supp RECTAL PRN (08:45)
[2019-03-12] MEDS ORDERED: Acetaminophen/oxyCODONE 325-5 MG Tab PO PRN ×3 (08:45→15:21)
[2019-03-12] MEDS ORDERED: Lactated Ringers 1,000 ML IV SCH (08:45)
[2019-03-12] MEDS ORDERED: Lanolin 100% Cream 7 GM Tube TOP PRN (08:45)
--- NOTE | 2019-03-12 08:48 | PCM.OPNOTE ---
- General Post-Op/Procedure Note Date of Surgery/Procedure: 03/12/19 Operative Procedure(s): Repeat C/section. Pre Op Diagnosis: IUP39+ previous C/section. Post-Op Diagnosis: Same Anesthesia Technique: Spinal Primary Surgeon: Fabiano Vee EBL in mLs: 600 Complications: None Condition: Good
--- NOTE | 2019-03-12 09:22 | PCM.PREANE ---
Preanesthetic Assessment - Anesthesia/Transfusion/Family Hx Type of Anesthesia Reaction: Excessive Nausea/Vomiting Transfusion History: No Prior Transfusion(s) - Review of Systems General: No Symptoms Pulmonary: No Symptoms Cardiovascular: No Symptoms Gastrointestinal: No Symptoms Neurological: No Symptoms Other: Reports: None - Physical Assessment Height: 1.7 m Weight: 95.708 kg ASA Class: 2 Mental Status: Alert & Oriented x3 Airway Class: Mallampati = 4 Dentition: Reports: Normal Dentition Thyro-Mental Finger Breadths: 3 Mouth Opening Finger Breadths: 2 ROM/Head Extension: Full Lungs: Clear to Auscultation, Normal Respiratory Effort Cardiovascular: Regular Rate, Regular Rhythm - Lab Values: Laboratory Last Values WBC 11.27 K/uL (4.0-11.0) H 03/11/19 11:05 RBC 4.07 M/uL (4.30-5.90) L 03/11/19 11:05 Hgb 12.0 g/dL (12.0-16.0) 03/11/19 11:05 Hct 35.0 % (36.0-46.0) L 03/11/19 11:05 MCV 86.0 fL (80.0-98.0) 03/11/19 11:05 MCH 29.5 pg (27.0-32.0) 03/11/19 11:05 MCHC 34.3 g/dL (31.0-37.0) 03/11/19 11:05 RDW Std Deviation 49.7 fl (28.0-62.0) 03/11/19 11:05 RDW Coeff of [place] 16 % (11.0-15.0) H 03/11/19 11:05 Plt Count 156 K/uL (150-400) 03/11/19 11:05 MPV 9.70 fL (7.40-12.00) 03/11/19 11:05 Nucleated RBC % 0.0 /100WBC 03/11/19 11:05 Nucleated RBCs # 0 K/uL 03/11/19 11:05 Blood Type A NEGATIVE 03/11/19 11:05 Antibody Screen NEGATIVE 03/11/19 11:05 - Allergies Allergies/Adverse Reactions: Allergies Allergy/AdvReac Type Severity Reaction Status Date / Time bupropion Allergy Other Verified 03/12/19 09:12 - Anesthesia Plan Pre-Op Medication Ordered: Antacids (bicitra), Other (scopolamine patch) - Acknowledgements Anesthesia Type Planned: Spinal Pt an Appropriate Candidate for the Planned Anesthesia: Yes Alternatives and Risks of Anesthesia Discussed w Pt/Guardian: Yes Pt/Guardian Understands and Agrees with Anesthesia Plan: Yes PreAnesthesia Questionnaire HEENT History: Reports: Allergic Rhinitis, Impaired Vision Other HEENT History: wears glasses/contacts Cardiovascular History: Reports: None Respiratory History: Reports: None Gastrointestinal History: Reports: Other (See Below) Other Gastrointestinal History: occasional heartburn with Genitourinary History: Reports: None FULL TIME History: Reports: Musculoskeletal History: Reports: None Neurological History: Reports: None Psychiatric History: Reports: None Endocrine/Metabolic History: Reports: Obesity/BMI 30+ Hematologic History: Reports: None Immunologic History: Reports: None Oncologic (Cancer) History: Reports: None Dermatologic History: Reports: None - Past Surgical History Head Surgeries/Procedures: Reports: None HEENT Surgical History: Reports: None Cardiovascular Surgical History: Reports: None Respiratory Surgical History: Reports: None GI Surgical History: Reports: Cholecystectomy Female Surgical History: Reports: Section Endocrine Surgical History: Reports: None Neurological Surgical History: Reports: None Musculoskeletal Surgical History: Reports: None Oncologic Surgical History: Reports: None Dermatological Surgical History: Reports: None - SUBSTANCE USE Smoking Status *Q: Never Smoker Days Per Week of Alcohol Use: 0 Recreational Drug Use History: No - HOME MEDS Home Medications: Home Meds PNV95/Ferrous Fumarate/FA [ Multivitamins] 1 each PO DAILY 01/01/15 [ History] Loratadine [Claritin] 1 tab PO DAILY 03/10/19 [History] - CURRENT (IN HOUSE) MEDS Current Meds: Current Medications Bisacodyl (Dulcolax) 10 mg RECTAL ONETIME PRN PRN Reason: Constipation Diphenhydramine HCl (Benadryl) 25 mg IVPUSH Q6H PRN PRN Reason: Itching or Nausea Docusate Sodium (Colace) 100 mg PO BID PARVEZ Emollient Ointment (Lansinoh Hpa) 0 gm TOP ASDIRECTED PRN PRN Reason: Sore Nipples Lactated Ringer's (Ringers, Lactated) 1,000 mls @ 500 mls/hr IV BOLUS PARVEZ Last Admin: 03/12/19 08:30 Dose: 500 mls/hr Oxytocin/Sodium Chloride (Oxytocin 30 Unit/500 Ml-Ns) 30 unit in 500 mls @ 250 mls/hr IV TITRATE [facility] Lactated Ringer's (Ringers, Lactated) 1,000 mls @ 125 mls/hr IV ASDIRECTED [facility] Ibuprofen (Motrin) 800 mg PO Q8H PRN PRN Reason: mild pain or fever Ketorolac Tromethamine (Toradol) 30 mg IVPUSH Q6H [facility] Stop: 03/13/19 08:46 Ondansetron HCl (Zofran) 4 mg IVPUSH Q4H PRN PRN Reason: Nausea/Vomiting Oxycodone/Acetaminophen (Percocet 325-5 Mg) 1 tab PO Q4H PRN PRN Reason: Pain (moderate 4-6) Oxycodone/Acetaminophen (Percocet 325-5 Mg) 2 tab PO Q4H PRN PRN Reason: Pain (moderate 4-6) Sodium Chloride (Saline Flush) 10 ml FLUSH ASDIRECTED PRN PRN Reason: Keep Vein Open Sodium Chloride (Saline Flush) 2.5 ml FLUSH ASDIRECTED PRN PRN Reason: Keep Vein Open Sodium Chloride (Normal Saline) 10 ml IV ASDIRECTED PRN PRN Reason: IV Use Discontinued Medications Citric Acid/Sodium Citrate (Bicitra Solution) 30 ml PO ONETIME ONE Stop: 03/11/19 09:55 Cefazolin Sodium/Dextrose 2 gm (/ Premix) 50 mls @ 100 mls/hr IV ONETIME ONE Stop: 03/12/19 08:59
[2019-03-12] MEDS ORDERED: Citric Acid/Sodium Citrate Solution 30 ML Cup PO ONE (09:25)
[2019-03-12] MEDS ORDERED: Scopolamine 1.5 MG Transdermal Patch TRDERM PRN (09:26)
[2019-03-12] MEDS ORDERED: Citric Acid/Sodium Citrate Solution 30 ML Cup ONE (09:29)
[2019-03-12] MEDS ORDERED: Nalbuphine 10 MG/1 ML Vial IVPUSH PRN (10:45)
[2019-03-12] MEDS ORDERED: Acetaminophen/HYDROcodone 325-5 MG Tab PO PRN (10:45)
[2019-03-12] MEDS ORDERED: Naloxone 0.4 MG/ML Syringe IVPUSH PRN (10:45)
[2019-03-12] MEDS ORDERED: Octyl 2-Cyanoacrylate 1 Tube ONE (10:52)
[2019-03-12] MEDS ORDERED: Morphine PF 10 MG/10 ML SDV ONE (11:36)
[2019-03-12] MEDS ORDERED: Phenylephrine/Normal Saline 100 MCG/ML 10 ML Syringe ONE (11:46)
[2019-03-12] MEDS ORDERED: ceFAZolin 1 GM Vial ONE (11:49)
[2019-03-12] MEDS ORDERED: Oxytocin 10 Units/1 ML SDV ONE ×2 (12:09→12:13)
[2019-03-12] MEDS ORDERED: Ketorolac 30 MG/ML SDV ONE (12:10)
[2019-03-12] MEDS ORDERED: Dexamethasone 4 MG/ML 5 ML MDV ONE (12:10)
[2019-03-12] MEDS ORDERED: Ondansetron 4 MG/2 ML SDV ONE (12:10)
--- NOTE | 2019-03-12 14:20 | OR ---
SURGEON: Fabiano Vee MD DATE OF PROCEDURE: PREOPERATIVE DIAGNOSIS: Previous section x2. POSTOPERATIVE DIAGNOSIS: Previous section x2. OPERATION PERFORMED: Repeat low-transverse section. TEST FACILITY ENGINEER: OR tech. ANESTHESIA: Spinal, Dr. Casillas. ESTIMATED BLOOD LOSS: 700 mL. COMPLICATIONS: None. FINDINGS: Normal uterus, tubes and ovary. score reported to be 8 and 9. INDICATION FOR SURGERY: The patient had two previous section. She is admitted for elective repeat section. PROCEDURE IN DETAIL: The patient was brought to the OR, properly identified. After adequate level of anesthesia, the patient was placed in lithotomy position and prepped and draped in sterile fashion as usual. Low transverse Pfannenstiel skin incision through the old scar was done. Jose's fascia and rectus fascia were opened in the direction of the incision. The 2 recti muscles were and peritoneal cavity was entered. Bladder flap was raised in the usual manner pushing the bladder away from the lower uterine segment. Low transverse uterine incision was done and extended manually and fetus was in the vertex position, delivered and handed to the nurse resuscitator, who was present at the time of delivery. The fetus cried immediately. score reported to be 8 and 9. The placenta delivered spontaneous, complete, and intact and repair of the lower uterine segment was done with 2-0 Vicryl continuous interlocking in two layers and reperitonealization done with 3-0 Vicryl continuous and then the peritoneal cavity was evacuated completely from all blood and blood clot and closed with 3- 0 Vicryl continuous and the rectus fascia was closed with #1 PDS continuous, Jose's fascia with 3-0 Vicryl continuous. Skin closed with 3-0 Vicryl in a subcuticular fashion with Dermabond. Instrument and sponge count were correct. The patient tolerated the procedure well and went to recovery room in stable general condition. CHRISTOPHER / ROBERTA /[id number]
[2019-03-12] MEDS: Acetaminophen/oxyCODONE 325-5 MG Tab PO PRN (15:44)
[2019-03-12] MEDS: Docusate Sodium 100 MG Cap PO SCH (18:18)
[2019-03-12] MEDS: Ketorolac 30 MG/ML SDV IVPUSH SCH (18:24)
[2019-03-13] MEDS: Ketorolac 30 MG/ML SDV IVPUSH SCH ×4 (00:49→22:47)
[2019-03-13] MEDS: Docusate Sodium 100 MG Cap PO SCH ×3 (06:24→21:03)
--- NOTE | 2019-03-13 08:58 | PCM.PNPP ---
- General Info Date of Service: 03/13/19 Admission Dx/Problem (Free Text): Patient Status Order with Admit Dx/Problem 03/11/19 09:54 Patient Status [ADT] Routine Admission Diagnosis/Problem Admission Diagnosis/Problem Functional Status: Reports: Pain Controlled, Tolerating Diet, Ambulating, Urinating - Review of Systems General: Reports: No Symptoms HEENT: Reports: No Symptoms Pulmonary: Reports: No Symptoms Cardiovascular: Reports: No Symptoms Gastrointestinal: Reports: No Symptoms Genitourinary: Reports: No Symptoms Musculoskeletal: Reports: No Symptoms Skin: Reports: No Symptoms Neurological: Reports: No Symptoms Psychiatric: Reports: No Symptoms - General Info Date of Service: 03/13/19 - Patient Data Vital Signs - Most Recent: Last Vital Signs Temp 37.1 C 03/13/19 07:45 Pulse 85 03/13/19 07:45 Resp 16 03/13/19 07:45 BP 100/51 L 03/13/19 07:45 Pulse Ox 96 03/13/19 07:45 Weight - Most Recent: 95.708 kg I&O - Last 24 Hours: Intake & Output 03/12/19 03/13/19 03/13/19 22:59 06:59 14:59 Output Total 340 Balance -340 Lab Results - Last 24 Hours: Laboratory Results - last 24 hr 03/12/19 03/13/19 Range/Units 13:16 04:52 Hgb 10.2 L (12.0-16.0) g/dL Hct 30.9 L (36.0-46.0) % Antibody Screen NEGATIVE Screen NEGATIVE (NEGATIVE) RhIG Candidate? YES Rhogam Indicated YES, BABY RH POS H Med Orders - Current: Current Medications Hydrocodone Bitart/Acetaminophen ([place] 325-5 Mg) 2 tab PO Q6H PRN PRN Reason: Pain (moderate 4-6) Bisacodyl (Dulcolax) 10 mg RECTAL ONETIME PRN PRN Reason: Constipation Diphenhydramine HCl (Benadryl) 25 mg IVPUSH Q6H PRN PRN Reason: Itching or Nausea Diphenhydramine HCl (Benadryl) 25 mg IVPUSH Q4H PRN PRN Reason: Itching Stop: 03/13/19 10:46 Last Admin: 03/12/19 16:05 Dose: 25 mg Docusate Sodium (Colace) 100 mg PO BID [facility] Last Admin: 03/13/19 06:24 Dose: Not Given Emollient Ointment (Lansinoh Hpa) 0 gm TOP ASDIRECTED PRN PRN Reason: Sore Nipples Lactated Ringer's (Ringers, Lactated) 1,000 mls @ 500 mls/hr IV BOLUS [facility] Last Admin: 03/12/19 09:44 Dose: 500 mls/hr Oxytocin/Sodium Chloride (Oxytocin 30 Unit/500 Ml-Ns) 30 unit in 500 mls @ 250 mls/hr IV TITRATE [facility] Lactated Ringer's (Ringers, Lactated) 1,000 mls @ 125 mls/hr IV ASDIRECTED [facility] Ibuprofen (Motrin) 800 mg PO Q8H PRN PRN Reason: mild pain or fever Nalbuphine HCl (Nubain) 2.5 mg IVPUSH Q3H PRN PRN Reason: Pruritis Stop: 03/13/19 10:46 Last Admin: 03/12/19 13:58 Dose: 2.5 mg Naloxone HCl (Narcan) 0.1 mg IVPUSH ONETIME PRN PRN Reason: Respiratory Depression Stop: 03/13/19 10:46 Ondansetron HCl (Zofran) 4 mg IVPUSH Q4H PRN PRN Reason: Nausea/Vomiting Oxycodone/Acetaminophen (Percocet 325-5 Mg) 1 tab PO Q4H PRN PRN Reason: Pain (moderate 4-6) Oxycodone/Acetaminophen (Percocet 325-5 Mg) 1 tab PO ONETIME PRN PRN Reason: Pain (mild 1-3) Oxycodone/Acetaminophen (Percocet 325-5 Mg) 1 - 2 tab PO Q4H PRN PRN Reason: Pain Last Admin: 03/12/19 15:44 Dose: 1 tab Scopolamine (Transderm-Scop) 1.5 mg TRDERM Q72H PRN PRN Reason: Nausea/Vomiting Last Admin: 03/12/19 10:08 Dose: 1.5 mg Sodium Chloride (Saline Flush) 10 ml FLUSH ASDIRECTED PRN PRN Reason: Keep Vein Open Sodium Chloride (Saline Flush) 2.5 ml FLUSH ASDIRECTED PRN PRN Reason: Keep Vein Open Sodium Chloride (Normal Saline) 10 ml IV ASDIRECTED PRN PRN Reason: IV Use Discontinued Medications Cefazolin Sodium (Ancef) Confirm Administered Dose 2 gm .ROUTE .STK-MED ONE Stop: 03/12/19 11:50 Citric Acid/Sodium Citrate (Bicitra Solution) 30 ml PO ONETIME ONE Stop: 03/11/19 09:55 Last Admin: 03/12/19 11:30 Dose: 30 ml Citric Acid/Sodium Citrate (Bicitra Solution) 30 ml PO ONETIME ONE Stop: 03/12/19 09:26 Last Admin: 03/13/19 06:21 Dose: Not Given Citric Acid/Sodium Citrate (Bicitra Solution) Confirm Administered Dose 30 ml .ROUTE .STK-MED ONE Stop: 03/12/19 09:30 Last Admin: 03/13/19 06:21 Dose: Not Given Dexamethasone (Dexamethasone) Confirm Administered Dose 20 mg .ROUTE .STK-MED ONE Stop: 03/12/19 12:11 Cefazolin Sodium/Dextrose 2 gm (/ Premix) 50 mls @ 100 mls/hr IV ONETIME ONE Stop: 03/12/19 08:59 Last Admin: 03/13/19 06:21 Dose: Not Given Ketorolac Tromethamine (Toradol) 30 mg IVPUSH Q6H [facility] Stop: 03/13/19 08:46 Last Admin: 03/13/19 07:11 Dose: 30 mg Ketorolac Tromethamine (Toradol) Confirm Administered Dose 30 mg .ROUTE .STK- MED ONE Stop: 03/12/19 12:11 Morphine Sulfate (Duramorph Pf) Confirm Administered Dose 10 mg .ROUTE .STK-MED ONE Stop: 03/12/19 11:37 Octyl Cyanoacrylate (Dermabond Advance) Confirm Administered Dose 1 applic .ROUTE .STK-MED ONE Stop: 03/12/19 10:53 Last Admin: 03/13/19 06:21 Dose: Not Given Ondansetron HCl (Zofran) Confirm Administered Dose 4 mg .ROUTE .STK-MED ONE Stop: 03/12/19 12:11 Oxycodone/Acetaminophen (Percocet 325-5 Mg) 2 tab PO Q4H PRN PRN Reason: Pain (moderate 4-6) Oxycodone/Acetaminophen (Percocet 325-5 Mg) 2 tab PO Q4H PRN PRN Reason: Pain (moderate 4-6) Stop: 03/12/19 15:21 Oxytocin (Pitocin) Confirm Administered Dose 20 unit .ROUTE .STK-MED ONE Stop: 03/12/19 12:10 Oxytocin (Pitocin) Confirm Administered Dose 20 unit .ROUTE .STK-MED ONE Stop: 03/12/19 12:14 Phenylephrine HCl (Phenylephrine In Ns 100 Mcg/Ml) Confirm Administered Dose 1 mg .ROUTE .STK-MED ONE Stop: 03/12/19 11:47 - Infant Interaction Infant Disposition, : [place] in Room with Family Interaction: Holding Infant Feeding: Breastfed ; Nursed Well Support Person: - Recovery Exam Fundal Tone: Firm Fundal Level: 1 Fingerbreadths Below Umbilicus Fundal Placement: Midline Lochia Amount: Small Lochia Color: Rubra/Red Perineum Description: Intact, Minimal Bruising/Swelling Episiotomy/Laceration: None Bladder Status: Indwelling Catheter in Place Urinary Elimination: Indwelling Catheter - Exam General: Alert, Oriented, Cooperative, No Acute Distress Lungs: Clear to Auscultation, Normal Respiratory Effort. No: Decreased Breath Sounds Cardiovascular: Regular Rate, Regular Rhythm. No: No Murmurs GI/Abdominal Exam: Soft, Non-Tender Extremities: Normal Inspection, Normal Range of Motion, No Pedal Edema Skin: Warm, Dry, Intact Wound/Incisions: Healing Well, No Drainage. No: Erythema Neurological: No New Focal Deficit, Normal Speech, Normal Tone, Strength Equal Bilateral Psy/Mental Status: Alert, Normal Affect, Normal Mood - Problem List & Annotations (1) Supervision of normal IUP (intrauterine ) in multigravida SNOMED Code(s): 964664822, 785059324, 897630374 Code(s): Z34.80 - ENCOUNTER FOR SUPRVSN OF NORMAL , UNSP TRIMESTER Status: Acute Priority: High Current Visit: Yes Qualifiers: Trimester: third trimester Qualified Code(s): Z34.83 - Encounter for supervision of other normal , third trimester (2) delivery delivered SNOMED Code(s): 266829241 Code(s): O82 - ENCOUNTER FOR DELIVERY WITHOUT INDICATION Status: Acute Priority: High Current Visit: Yes - Problem List Review Problem List Initiated/Reviewed/Updated: Yes - Plan Plan:: IUP 39+1 admitted for elective repeat C/section. PPD#1 A: VSS, AF, Lochia small, incision dry/intact, BF well. Stable P: continue pp plan of care
[2019-03-13] MEDS: Acetaminophen/oxyCODONE 325-5 MG Tab PO PRN ×2 (12:17→23:39)
[2019-03-13] MEDS: Ibuprofen 800 MG Tab PO PRN (15:23)
[2019-03-14] MEDS: Ibuprofen 800 MG Tab PO PRN ×2 (03:00→11:48)
[2019-03-14] MEDS: Docusate Sodium 100 MG Cap PO SCH (08:54)
[2019-03-14] MEDS: Acetaminophen/oxyCODONE 325-5 MG Tab PO PRN ×2 (08:54→14:12)
--- NOTE | 2019-03-14 11:38 | PCM.PNPP ---
- General Info Date of Service: 03/14/19 Functional Status: Reports: Pain Controlled, Tolerating Diet, Ambulating, Urinating - Review of Systems General: Reports: No Symptoms HEENT: Reports: No Symptoms Pulmonary: Reports: No Symptoms Cardiovascular: Reports: No Symptoms Gastrointestinal: Reports: No Symptoms Genitourinary: Reports: No Symptoms Musculoskeletal: Reports: No Symptoms Skin: Reports: No Symptoms Neurological: Reports: No Symptoms Psychiatric: Reports: No Symptoms - General Info Date of Service: 03/14/19 - Patient Data Vital Signs - Most Recent: Last Vital Signs Temp 36.3 C 03/14/19 07:00 Pulse 73 03/14/19 07:00 Resp 16 03/14/19 07:00 BP 94/55 L 03/14/19 07:00 Pulse Ox 95 03/14/19 07:00 Weight - Most Recent: 95.708 kg Med Orders - Current: Current Medications Hydrocodone Bitart/Acetaminophen ([place] 325-5 Mg) 2 tab PO Q6H PRN PRN Reason: Pain (moderate 4-6) Last Admin: 03/13/19 16:59 Dose: 2 tab Bisacodyl (Dulcolax) 10 mg RECTAL ONETIME PRN PRN Reason: Constipation Diphenhydramine HCl (Benadryl) 25 mg IVPUSH Q6H PRN PRN Reason: Itching or Nausea Docusate Sodium (Colace) 100 mg PO BID [facility] Last Admin: 03/14/19 08:54 Dose: 100 mg Emollient Ointment (Lansinoh Hpa) 0 gm TOP ASDIRECTED PRN PRN Reason: Sore Nipples Lactated Ringer's (Ringers, Lactated) 1,000 mls @ 500 mls/hr IV BOLUS [facility] Last Admin: 03/12/19 09:44 Dose: 500 mls/hr Oxytocin/Sodium Chloride (Oxytocin 30 Unit/500 Ml-Ns) 30 unit in 500 mls @ 250 mls/hr IV TITRATE [facility] Lactated Ringer's (Ringers, Lactated) 1,000 mls @ 125 mls/hr IV ASDIRECTED [facility] Ibuprofen (Motrin) 800 mg PO Q8H PRN PRN Reason: mild pain or fever Last Admin: 03/14/19 03:00 Dose: 800 mg Ondansetron HCl (Zofran) 4 mg IVPUSH Q4H PRN PRN Reason: Nausea/Vomiting Oxycodone/Acetaminophen (Percocet 325-5 Mg) 1 tab PO Q4H PRN PRN Reason: Pain (moderate 4-6) Last Admin: 03/14/19 08:54 Dose: 1 tab Oxycodone/Acetaminophen (Percocet 325-5 Mg) 1 tab PO ONETIME PRN PRN Reason: Pain (mild 1-3) Oxycodone/Acetaminophen (Percocet 325-5 Mg) 1 - 2 tab PO Q4H PRN PRN Reason: Pain Last Admin: 03/13/19 23:39 Dose: 2 tab Scopolamine (Transderm-Scop) 1.5 mg TRDERM Q72H PRN PRN Reason: Nausea/Vomiting Last Admin: 03/12/19 10:08 Dose: 1.5 mg Sodium Chloride (Saline Flush) 10 ml FLUSH ASDIRECTED PRN PRN Reason: Keep Vein Open Sodium Chloride (Saline Flush) 2.5 ml FLUSH ASDIRECTED PRN PRN Reason: Keep Vein Open Sodium Chloride (Normal Saline) 10 ml IV ASDIRECTED PRN PRN Reason: IV Use Discontinued Medications Cefazolin Sodium (Ancef) Confirm Administered Dose 2 gm .ROUTE .STK-MED ONE Stop: 03/12/19 11:50 Citric Acid/Sodium Citrate (Bicitra Solution) 30 ml PO ONETIME ONE Stop: 03/11/19 09:55 Last Admin: 03/12/19 11:30 Dose: 30 ml Citric Acid/Sodium Citrate (Bicitra Solution) 30 ml PO ONETIME ONE Stop: 03/12/19 09:26 Last Admin: 03/13/19 06:21 Dose: Not Given Citric Acid/Sodium Citrate (Bicitra Solution) Confirm Administered Dose 30 ml .ROUTE .STK-MED ONE Stop: 03/12/19 09:30 Last Admin: 03/13/19 06:21 Dose: Not Given Dexamethasone (Dexamethasone) Confirm Administered Dose 20 mg .ROUTE .STK-MED ONE Stop: 03/12/19 12:11 Diphenhydramine HCl (Benadryl) 25 mg IVPUSH Q4H PRN PRN Reason: Itching Stop: 03/13/19 10:46 Last Admin: 03/12/19 16:05 Dose: 25 mg Cefazolin Sodium/Dextrose 2 gm (/ Premix) 50 mls @ 100 mls/hr IV ONETIME ONE Stop: 03/12/19 08:59 Last Admin: 03/13/19 06:21 Dose: Not Given Ketorolac Tromethamine (Toradol) 30 mg IVPUSH Q6H [facility] Stop: 03/13/19 08:46 Last Admin: 03/13/19 22:47 Dose: Not Given Ketorolac Tromethamine (Toradol) Confirm Administered Dose 30 mg .ROUTE .STK- MED ONE Stop: 03/12/19 12:11 Morphine Sulfate (Duramorph Pf) Confirm Administered Dose 10 mg .ROUTE .STK-MED ONE Stop: 03/12/19 11:37 Nalbuphine HCl (Nubain) 2.5 mg IVPUSH Q3H PRN PRN Reason: Pruritis Stop: 03/13/19 10:46 Last Admin: 03/12/19 13:58 Dose: 2.5 mg Naloxone HCl (Narcan) 0.1 mg IVPUSH ONETIME PRN PRN Reason: Respiratory Depression Stop: 03/13/19 10:46 Octyl Cyanoacrylate (Dermabond Advance) Confirm Administered Dose 1 applic .ROUTE .STK-MED ONE Stop: 03/12/19 10:53 Last Admin: 03/13/19 06:21 Dose: Not Given Ondansetron HCl (Zofran) Confirm Administered Dose 4 mg .ROUTE .STK-MED ONE Stop: 03/12/19 12:11 Oxycodone/Acetaminophen (Percocet 325-5 Mg) 2 tab PO Q4H PRN PRN Reason: Pain (moderate 4-6) Oxycodone/Acetaminophen (Percocet 325-5 Mg) 2 tab PO Q4H PRN PRN Reason: Pain (moderate 4-6) Stop: 03/12/19 15:21 Oxytocin (Pitocin) Confirm Administered Dose 20 unit .ROUTE .STK-MED ONE Stop: 03/12/19 12:10 Oxytocin (Pitocin) Confirm Administered Dose 20 unit .ROUTE .STK-MED ONE Stop: 03/12/19 12:14 Phenylephrine HCl (Phenylephrine In Ns 100 Mcg/Ml) Confirm Administered Dose 1 mg .ROUTE .STK-MED ONE Stop: 03/12/19 11:47 - Interaction Infant Disposition, : in Room with Family Interaction: Holding Infant Infant Feeding: Breastfed ; Nursed Well Support Person: - Recovery Exam Fundal Tone: Firm Fundal Level: 2 Fingerbreadths Below Umbilicus Fundal Placement: Midline Lochia Amount: Scant Lochia Color: Rubra/Red Perineum Description: Intact, Minimal Bruising/Swelling Episiotomy/Laceration: None Bladder Status: Voiding Urinary Elimination: Voided - Exam HEENT: Pupils Equal Neck: Supple Lungs: Clear to Auscultation, Normal Respiratory Effort Cardiovascular: Regular Rate, Regular Rhythm GI/Abdominal Exam: Normal Bowel Sounds, Non-Tender, No Distention, Pelvis Stable Extremities: Normal Inspection, Normal Range of Motion, Non-Tender, No Pedal Edema, Normal Capillary Refill Skin: Warm, Dry, Intact Wound/Incisions: Healing Well Neurological: No New Focal Deficit Psy/Mental Status: Alert - Problem List Review Problem List Initiated/Reviewed/Updated: Yes - My Orders Last 24 Hours: My Active Orders 03/14/19 11:20 Ready for Discharge [RC] PER UNIT ROUTINE - Assessment Assessment:: POD#2 after , stable minimal lochia, tolerating diet. May want to go home later today. - Plan Plan:: Anticipate discharge later today. Discharge instructions reviewed.
[2019-03-14 14:21] VITALS: BP 108/69
== END 2019-03-14 14:30 | disposition home or self-care (01) | DRG 540 ==
LOC: MW.OB 07:45 → MW.MS 16:05 → MW.OB 16:10
PROVIDERS: ADMIT Obstetrics & Gynecology; ATTEND Obstetrics & Gynecology
PROC: 10D00Z1 Extraction of Products of Conception, Low, Open Approach (ICD-10-PCS; principal; 2019-03-12)
DX: O34.211 Maternal care for low transverse scar from previous cesarean delivery (principal); O99.214 Obesity complicating childbirth; E66.9 Obesity, unspecified; Z37.0 Single live birth; Z3A.39 39 weeks gestation of pregnancy
CPT/HCPCS: 36415; 36430; 59025; 85014; 85018; 85027; 85460; 86850; 86900; 86901; A9270-GY; J0690; J1100; J1200; J1885; J2270; J2300; J2370; J2405; J2590; J2792; J7120

== ENCOUNTER 2019-08-13 19:07 | Emergency (ER) | payer BC, MEDICAID ==
[2019-08-13] MEDS ORDERED: Albuterol/Ipratropium 3.0-0.5 MG/3 ML Neb Soln NEB ONE (19:10)
--- NOTE | 2019-08-13 19:49 | EDM.PDOC ---
ED HPI GENERAL MEDICAL PROBLEM - General Chief Complaint: Respiratory Problem Stated Complaint: WHEEZING Time Seen by Provider: 08/13/19 19:47 Source of Information: Reports: Patient - History of Present Illness INITIAL COMMENTS - FREE TEXT/NARRATIVE: HISTORY AND PHYSICAL: History of present illness: []Patient with asthma presents with cough for one month and wheeze for the last 2 weeks no apparent distress no fever nausea vomiting chills sweats has been out of her albuterol inhaler Review of systems: As per history of present illness and below otherwise all systems reviewed and negative. Past medical history: As per history of present illness and as reviewed below otherwise noncontributory. Surgical history: As per history of present illness and as reviewed below otherwise noncontributory. Social history: No reported history of drug or alcohol abuse. Family history: As per history of present illness and as reviewed below otherwise noncontributory. Physical exam: HEENT: Atraumatic, normocephalic, pupils reactive, negative for conjunctival pallor or scleral icterus, mucous membranes moist, throat clear, neck supple, nontender, trachea midline. Lungs: Clear to auscultation, breath sounds equal bilaterally, chest nontender. however diminished at the base Heart: S1S2, regular, negative for clicks, rubs, or JVD. Abdomen: Soft, nondistended, nontender. Negative for masses or hepatosplenomegaly. Negative for costovertebral tenderness. Pelvis: Stable nontender. Genitourinary: Deferred. Rectal: Deferred. Extremities: Atraumatic, negative for cords or calf pain. Neurovascular unremarkable. Neuro: Awake, alert, oriented. Cranial nerves II through XII unremarkable. Cerebellum unremarkable. Motor and sensory unremarkable throughout. Exam nonfocal. Diagnostics: [UA hCG Chest 1 view Influenza ] Therapeutic Cipro 500 by mouth twice a day #20 no refill Prednisone HFA Impression: [ bronchitis History of asthma Medication noncompliance UTI ] Definitive disposition and diagnosis as appropriate pending reevaluation and review of above. left chest Pain Score (Numeric/FACES): 9 - Related Data Allergies Allergy/AdvReac Type Severity Reaction Status Date / Time bupropion Allergy Other Verified 08/13/19 19:24 Home Meds: Home Meds . [No Known Home Meds] 08/13/19 [History] Past Medical History HEENT History: Reports: Allergic Rhinitis, Impaired Vision Other HEENT History: wears glasses/contacts Cardiovascular History: Reports: None Respiratory History: Reports: Asthma Gastrointestinal History: Reports: Other (See Below) Other Gastrointestinal History: occasional heartburn with Genitourinary History: Reports: None CAR GREASER History: Reports: Musculoskeletal History: Reports: None Neurological History: Reports: None Psychiatric History: Reports: Depression Endocrine/Metabolic History: Reports: Obesity/BMI 30+ Hematologic History: Reports: None Immunologic History: Reports: None Oncologic (Cancer) History: Reports: None Dermatologic History: Reports: None - Past Surgical History Head Surgeries/Procedures: Reports: None HEENT Surgical History: Reports: None Cardiovascular Surgical History: Reports: None Respiratory Surgical History: Reports: None GI Surgical History: Reports: Cholecystectomy Female Surgical History: Reports: Section Endocrine Surgical History: Reports: None Neurological Surgical History: Reports: None Musculoskeletal Surgical History: Reports: None Oncologic Surgical History: Reports: None Dermatological Surgical History: Reports: None Social & Family History - Family History Family Medical History: Noncontributory - Tobacco Use Smoking Status *Q: Never Smoker - Caffeine Use Caffeine Use: Reports: Coffee, Soda Caffeine Use Comment: 2 cups per day - Recreational Drug Use Recreational Drug Use: No ED ROS GENERAL - Review of Systems Review Of Systems: See Below ED EXAM, GENERAL - Physical Exam Exam: See Below Course - Vital Signs Last Recorded V/S: Last Vital Signs Temp 97 F 08/13/19 19:15 Pulse 100 08/13/19 19:15 Resp 18 08/13/19 19:15 BP 137/93 H 08/13/19 19:15 Pulse Ox 99 08/13/19 19:15 - Orders/Labs/Meds Orders: Active Orders 24 hr Category Date Time Status RT Aerosol Therapy [RC] ASDIRECTED Care 08/13/19 19:10 Active Chest 1V Frontal [CR] Stat Exams 08/13/19 19:10 Taken CULTURE URINE [RM] Stat Lab 08/13/19 19:20 Received Labs: Laboratory Tests 08/13/19 08/13/19 Range/Units 19:20 19:20 Urine Color YELLOW Urine Appearance SLT CLOUDY Urine pH 6.5 (5.0-8.0) Ur Specific [place] 1.020 (1.001-1.035) Urine Protein NEGATIVE (NEGATIVE) mg/dL Urine Glucose (UA) NEGATIVE (NEGATIVE) mg/dL Urine Ketones NEGATIVE (NEGATIVE) mg/dL Urine Occult Blood TRACE-INTACT H (NEGATIVE) Urine Nitrite NEGATIVE (NEGATIVE) Urine Bilirubin NEGATIVE (NEGATIVE) Urine Urobilinogen 1.0 (<2.0) EU/dL Ur Leukocyte Esterase SMALL H (NEGATIVE) Urine RBC 0-2 (0-2/HPF) Urine WBC 2-4 (0-5/HPF) Ur Epithelial Cells MODERATE (NONE-FEW) Urine Bacteria FEW (NEGATIVE) Urine HCG, Qual NEGATIVE (NEGATIVE) Meds: Medications Discontinued Medications Generic Name Dose Route Start Last Admin Trade Name Freq PRN Reason Stop Dose Admin Albuterol/Ipratropium 3 ml 08/13/19 19:10 08/13/19 19:25 Duoneb 3.0-0.5 Mg/3 Ml NEB 08/13/19 19:11 3 ml ONETIME ONE Administration Departure - Departure Time of Disposition: 19:57 Disposition: Home, Self-Care 01 Condition: Good Clinical Impression: Acute bronchitis, Asthma, UTI (urinary tract infection) - Discharge Information Referrals: Caity Lane NP [Primary Care Provider] - Forms: ED Department Discharge Additional Instructions: The following information is given to patients seen in the emergency department who are being discharged to home. This information is to outline your options for follow-up care. We provide all patients seen in our emergency department with a follow-up referral. The need for follow-up, as well as the timing and circumstances, are variable depending upon the specifics of your emergency department visit. If you don't have a primary care physician on staff, we will provide you with a referral. We always advise you to contact your personal physician following an emergency department visit to inform them of the circumstance of the visit and for follow-up with them and/or the need for any referrals to a consulting specialist. The emergency department will also refer you to a specialist when appropriate. This referral assures that you have the opportunity for follow-up care with a specialist. All of these measure are taken in an effort to provide you with optimal care, which includes your follow-up. Under all circumstances we always encourage you to contact your private physician who remains a resource for coordinating your care. When calling for follow-up care, please make the office aware that this follow-up is from your recent emergency room visit. If for any reason you are refused follow-up, please contact the [facility] emergency department at and asked to speak to the emergency department charge nurse. - My Orders Last 24 Hours: My Active Orders 08/13/19 19:10 RT Aerosol Therapy [RC] ASDIRECTED Chest 1V Frontal [CR] Stat 08/13/19 19:20 CULTURE URINE [RM] Stat - Assessment/Plan Last 24 Hours: My Active Orders 08/13/19 19:10 RT Aerosol Therapy [RC] ASDIRECTED Chest 1V Frontal [CR] Stat 08/13/19 19:20 CULTURE URINE [RM] Stat
--- NOTE | 2019-08-13 20:03 | CR ---
Indication: Cough, wheezing, left chest pain, coughing Technique: Chest 1 view Comparison: None Findings/Impression: Normal cardiomediastinal silhouette. Lungs and pleural spaces are clear. Osseous structures are intact. Dictated by Ivory Flynn MD @ Aug 13 2019 8:01PM Signed by Dr. Ivory Flynn @ Aug 13 2019 8:01PM
[2019-08-13 20:10] VITALS: BP 103/76; PULSE 92
== END 2019-08-13 20:10 | disposition home or self-care (01) ==
LOC: MW.ED 19:07
DX: J20.9 Acute bronchitis, unspecified (principal); J45.909 Unspecified asthma, uncomplicated; N39.0 Urinary tract infection, site not specified; Z91.14 Patient's other noncompliance with medication regimen; E66.9 Obesity, unspecified; Z88.8 Allergy status to other drugs, medicaments and biological substances; Z68.31 Body mass index [BMI] 31.0-31.9, adult
CPT/HCPCS: 71045; 71045-26; 81001; 81025; 87086; 87804; 99284-25; J7620-GY

== ENCOUNTER 2021-03-05 21:28 | Emergency (ER) | payer SELFPAY ==
[2021-03-05 22:48] VITALS: BP 123/81; PULSE 86
[2021-03-05] MEDS ORDERED: Amoxicillin/Clavulanate K 875-125 MG Tab PO ONE (22:55)
--- NOTE | 2021-03-05 22:55 | EDM.PDOC ---
ED HPI GENERAL MEDICAL PROBLEM - General Chief Complaint: ENT Problem Stated Complaint: POSSIBLE TOOTH ABCESS Time Seen by Provider: 03/05/21 22:52 Source of Information: Reports: Patient History Limitations: Reports: No Limitations - History of Present Illness INITIAL COMMENTS - FREE TEXT/NARRATIVE: Patient is a 31-year-old female who presents today for left lower jaw pain. P rommel says she has history of tooth abscesses need to get wisdom teeth pulled. She is having swelling to the left side of her face but denies any fever chills nausea vomiting. Patient been taking Motrin Tylenol for pain. Left Lower Oral/Mouth Pain Score (Numeric/FACES): 10 - Related Data Allergies Allergy/AdvReac Type Severity Reaction Status Date / Time bupropion Allergy Other Verified 03/05/21 22:47 Home Meds: Home Meds . 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: Musculoskeletal History: Reports: None Neurological History: Reports: None Psychiatric History: Reports: Depression Endocrine/Metabolic History: Reports: Obesity/BMI 30+ Hematologic History: Reports: None Immunologic History: Reports: None Oncologic (Cancer) History: Reports: None Dermatologic History: Reports: None - Past Surgical History Head Surgeries/Procedures: Reports: None HEENT Surgical History: Reports: None Cardiovascular Surgical History: Reports: None Respiratory Surgical History: Reports: None GI Surgical History: Reports: Cholecystectomy Female Surgical History: Reports: Section Endocrine Surgical History: Reports: None Neurological Surgical History: Reports: None Musculoskeletal Surgical History: Reports: None Oncologic Surgical History: Reports: None Dermatological Surgical History: Reports: None Social & Family History - Family History Family Medical History: No Pertinent Family History - Caffeine Use Caffeine Use: Reports: Coffee, Soda Caffeine Use Comment: 2 cups per day ED ROS ENT - Review of Systems Review Of Systems: See Below Constitutional: Reports: No Symptoms HEENT: Reports: Dental Pain Respiratory: Reports: No Symptoms Endocrine: Reports: No Symptoms GI/Abdominal: Reports: No Symptoms : Reports: No Symptoms Musculoskeletal: Reports: No Symptoms Skin: Reports: No Symptoms Neurological: Reports: No Symptoms Psychiatric: Reports: No Symptoms Hematologic/Lymphatic: Reports: No Symptoms Immunologic: Reports: No Symptoms ED EXAM, ENT - Physical Exam Exam: See Below Exam Limited By: No Limitations General Appearance: Alert, WD/WN, No Apparent Distress Nose: Normal Inspection Mouth/Throat: Normal Inspection, Normal Gums, Dental Abcess, Dental Pain, Dental Tenderness. No: Throat Swelling, Tongue Swelling Head: Atraumatic Respiratory/Chest: No Respiratory Distress Cardiovascular: Normal Peripheral Pulses Neurological: Alert, Oriented, Normal Cognition Course - Vital Signs Last Recorded V/S: Last Vital Signs Temp 97.6 F 03/05/21 22:44 Pulse 86 03/05/21 22:44 Resp 16 03/05/21 22:44 BP 123/81 03/05/21 22:44 Pulse Ox 97 03/05/21 22:44 Departure - Departure Time of Disposition: 22:54 Disposition: Home, Self-Care 01 Condition: Good Clinical Impression: Dental abscess - Discharge Information *PRESCRIPTION DRUG MONITORING PROGRAM REVIEWED*: Not Applicable *COPY OF PRESCRIPTION DRUG MONITORING REPORT IN PATIENT ROB: Not Applicable Instructions: Dental Abscess, [id number] Referrals: Caity Lane NP [Primary Care Provider] - Additional Instructions: The following information is given to patients seen in the emergency department who are being discharged to home. This information is to outline your options for follow-up care. We provide all patients seen in our emergency department with a follow-up referral. The need for follow-up, as well as the timing and circumstances, are variable depending upon the specifics of your emergency department visit. If you don't have a primary care physician on staff, we will provide you with a referral. We always advise you to contact your personal physician following an emergency department visit to inform them of the circumstance of the visit and for follow-up with them and/or the need for any referrals to a consulting specialist. The emergency department will also refer you to a specialist when appropriate. This referral assures that you have the opportunity for follow-up care with a specialist. All of these measure are taken in an effort to provide you with optimal care, which includes your follow-up. Under all circumstances we always encourage you to contact your private physician who remains a resource for coordinating your care. When calling for follow-up care, please make the office aware that this follow-up is from your recent emergency room visit. If for any reason you are refused follow-up, please contact the Emergency Department at and asked to speak to the emergency department charge nurse. Please follow up with your primary care physician. If you do not have a primary care physician, see below: [facility] [address] [place] [id number] [facility] [address] [place] [address] You are seen today for tooth pain. We will send you on prescription. Please follow-up with the dentist. You have any difficulty swallowing or acute swelling please return to the ED. Sepsis Event Note (ED) - Evaluation Sepsis Screening Result: No Definite Risk - Focused Exam Vital Signs: Vital Signs Temp Pulse Resp BP Pulse Ox 03/05/21 22:44 97.6 F 86 16 123/81 97 - Assessment/Plan Plan: Patient is a 31-year-old female presents today for dental pain. Patient had dental abscess will prescribe her antibiotics have her follow-up dentist.
== END 2021-03-05 23:15 | disposition home or self-care (01) ==
LOC: MW.ED 21:28
DX: K04.7 Periapical abscess without sinus (principal); Z88.8 Allergy status to other drugs, medicaments and biological substances
CPT/HCPCS: 99282; A9270

== ENCOUNTER 2021-05-22 10:24 | Emergency (ER) | payer OTHER, BC ==
[~2021-05-22 10:24] MED LIST changes: -Citric Acid/Sodium Citrate Solution 30 ML Cup PO ONE; -Oxytocin/0.9 % Sodium Chloride 30 UNIT/500 ML BAG IV SCH; -Sodium Chloride 0.9% 10 ML SDV IV PRN; -Sodium Chloride 0.9% 10 ML Syringe FLUSH PRN; -Sodium Chloride 0.9% 2.5 ML Syringe FLUSH PRN; +fentaNYL 50 MCG/ML SDV IVPUSH ONE
[2021-05-22] MEDS ORDERED: fentaNYL 100 MCG/2 ML SDV IVPUSH STA (10:30)
[2021-05-22] MEDS ORDERED: Ondansetron 4 MG/2 ML SDV IVPUSH ONE (10:30)
[2021-05-22] MEDS ORDERED: Sodium Chloride 0.9% 10 ML Syringe FLUSH PRN (10:33)
[2021-05-22] MEDS ORDERED: Sodium Chloride 0.9% 2.5 ML Syringe FLUSH PRN (10:33)
[2021-05-22 11:17] LABS: BLOOD UREA NITROGEN,BUN 8 mg/dL (7.0-18.0); CARBON DIOXIDE,CO2 21.2 mmol/L (21.0-32.0); CHLORIDE,CL 106 mmol/L (98-107); GLUCOSE RANDOM 102 mg/dL (74-106); POTASSIUM,K 4.6 mmol/L (3.5-5.1); SODIUM,NA 138 mmol/L (136-145)
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
[2021-05-22] MEDS ORDERED: HYDROmorphone 1 MG/ML Syringe IVPUSH ONE ×3 (11:39→14:09)
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
[2021-05-22 13:24] VITALS: PULSE 100
[2021-05-22] MEDS ORDERED: Lactated Ringers 1,000 ML IV SCH (13:45)
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
[2021-05-22 14:33] VITALS: BP 112/73
== END 2021-05-22 14:21 ==
LOC: MW.ED 10:24
DX: S82.142A Displaced bicondylar fracture of left tibia, initial encounter for closed fracture (principal); E66.9 Obesity, unspecified; Z68.30 Body mass index [BMI] 30.0-30.9, adult; Z88.8 Allergy status to other drugs, medicaments and biological substances; V86.99XA Unspecified occupant of other special all-terrain or other off-road motor vehicle injured in nontraffic accident, initial encounter; Y92.410 Unspecified street and highway as the place of occurrence of the external cause
CPT/HCPCS: 36415; 72125; 72170; 73590; 73700; 80053; 84703; 85025; 96374; 96375; 96376; 99285; J1170; J2405; J3010

== ENCOUNTER 2022-11-28 10:00 | Emergency (ER) | payer MEDICAID ==
[2022-11-28] MEDS ORDERED: Acetaminophen 325 MG Tab PO ONE (10:46)
[2022-11-28] MEDS ORDERED: Ibuprofen 400 MG Tab PO ONE (10:46)
[2022-11-28 11:57] VITALS: BP 124/68; PULSE 87
== END 2022-11-28 11:56 | disposition home or self-care (01) ==
LOC: MW.ED 10:00
DX: S80.212A Abrasion, left knee, initial encounter (principal); S90.812A Abrasion, left foot, initial encounter; J45.909 Unspecified asthma, uncomplicated; E66.9 Obesity, unspecified; Z68.31 Body mass index [BMI] 31.0-31.9, adult; Z79.899 Other long term (current) drug therapy; Z88.8 Allergy status to other drugs, medicaments and biological substances; W01.0XXA Fall on same level from slipping, tripping and stumbling without subsequent striking against object, initial encounter
CPT/HCPCS: 73562; 73590; 73610; 99283; A9270